=== PATIENT | female | born 1940 | race Caucasian/White ===

== ENCOUNTER 2018-07-20 07:53 | Observation (INO) ==
[2018-07-20] MEDS ORDERED: *HR* HYDROcodone/Acet 5/325 mg TABLET PO ONE (08:10)
[2018-07-20 08:22] LABS: Basophils % 0.3 %; Eosinophils # 0.1 K/mcL (0.0-0.6); Eosinophils % 0.8 %; Hematocrit 39.2 % (35.3-44.9); Hemoglobin 12.3 g/dL (11.5-15.4); Immature Granulocytes % 0.5 % (0-4); Lymphocytes # 1.2 K/mcL (0.6-4.6); Lymphocytes % 13.7 %; Mean Corpuscular HGB Conc 31.4 g/dL (31.6-35.5); Mean Corpuscular Hemoglobin 32.5 pg (28.0-33.3); Mean Corpuscular Volume 103.7 fL (83.0-100.0); Mean Platelet Volume 10.1 fL (9.4-12.4); Monocytes % 11.6 %; Neutrophils # 6.5 K/mcL (1.6-8.9); Platelet Count 252 K/mcL (140-400); Red Blood Count 3.78 M/mcL (3.82-4.97); Segmented Neutrophils % 73.1 %
[2018-07-20 08:40] LABS: Alanine Aminotransferase 21 Units/L (7-52); Albumin 3.5 g/dL (3.5-5.7); Albumin/Globulin Ratio 1.5 (1.1-2.2); Alkaline Phosphatase 184 Units/L (34-104); Aspartate Amino Transferase 23 Units/L (13-39); BUN/Creatinine Ratio 32 (6-26); Bilirubin,Total 0.7 mg/dL (0.3-1.0); Blood Urea Nitrogen 19 mg/dL (8-23); Calcium 9.8 mg/dL (8.6-10.3); Carbon Dioxide 29 mEq/L (23-29); Chloride 107 mEq/L (98-107); Creatine Kinase 102 Units/L (30-223); Globulin 2.3 g/dL (2.4-3.5); Glucose 98 mg/dL (70-105); Osmolality,Calculated 298 (280-300); Potassium 4.3 mEq/L (3.5-5.1); Sodium 143 mEq/L (136-145); Total Protein 5.8 g/dL (6.4-8.9); eGFR For Non-African Americans > 60 (> 60)
[2018-07-20 09:13] LABS: Thyroid Stimulating Hormone 1.197 mcIU/mL (0.340-5.600)
[2018-07-20] MEDS: 0.9 % Sodium Chloride 1,000 ML IVC SCH ×2 (09:17→14:00)
--- NOTE | 2018-07-20 09:27 | Emergency Department Note ---
Disposition Clinical Impression: Back pain, Weakness, Fall Disposition: Admitted As Inpatient Condition: Fair Referrals: NONE,PCP [Primary Care Provider] - Forms: ED Satisfaction Letter General Adult HPI - General Chief complaint: ED Altered Mental Status Stated complaint: AMS, Fall Time Seen by Provider: 07/20/18 07:58 Source: patient, EMS Limitations: no limitations, altered mental status Nursing Notes Reviewed: Yes Vital Signs Reviewed: Yes - History of Present Illness Pain Scale: 9 - Related Data Home Medications Medication Instructions Recorded Confirmed Metoprolol [Lopressor] 25 mg PO BID 06/13/18 06/13/18 Hydrocodone. 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 - Social History Smoking Status: Never smoker Smokeless Tobacco Status: No Alcohol use: Reports: none Drug use: Reports: none Physical Exam - General Limitations: no limitations, altered mental status General appearance: in no apparent distress Course Vital Signs Temperature 97.9 F 07/20/18 08:02 Pulse Rate 90 07/20/18 08:02 Respiratory Rate 16 07/20/18 08:02 Blood Pressure 132/68 07/20/18 08:02 O2 Sat by Pulse Oximetry 98 07/20/18 08:02 Temperature 97.9 F 07/20/18 08:02 Pulse Rate 90 07/20/18 08:02 Respiratory Rate 16 07/20/18 08:02 Blood Pressure 132/68 07/20/18 08:02 O2 Sat by Pulse Oximetry 98 07/20/18 08:02 Oxygen Delivery Oxygen Delivery Room Air Medical Decision Making - MDM Narrative Medical decision making narrative: Head CT 07/20/18 08:10 IMPRESSION: No acute intracranial abnormality. D/ / Gisela Franks MD / Gisela Franks MD Interpreting Provider: Gisela Franks MD Chest X-Ray 07/20/18 09:26 IMPRESSION: Hypoaeration with left upper lobe scarring or atelectasis. D/ / 07/20/2018 09:43:13 Sarkis Reynaga MD / earnold Interpreting Provider: Sarkis Reynaga MD 1030 hrs.: Patient feeling better after pain meds due to her inability to ambulate well living alone I think she needs social service evaluation which we do not have any ER today no due admission with social service consult upstairs. Hospitalist was paged case was discussed and they have accepted her. - Lab Data Result diagrams: 07/20/18 08:10 07/20/18 08:10 Lab Results 07/20/18 07/20/18 Range/Units 08:10 08:10 WBC 8.9 (4.3-11.1) K/mcL RBC 3.78 L (3.82-4.97) M/mcL Hgb 12.3 (11.5-15.4) g/dL Hct 39.2 (35.3-44.9) % MCV 103.7 H (83.0-100.0) fL MCH 32.5 (28.0-33.3) pg MCHC 31.4 L (31.6-35.5) g/dL RDW 14.0 (11.5-14.5) % Plt Count 252 (140-400) K/mcL MPV 10.1 (9.4-12.4) fL Immature Gran % 0.5 (0-4) % Seg Neutrophils % 73.1 % Lymphocytes % 13.7 % Monocytes % 11.6 % Eosinophils % 0.8 % Basophils % 0.3 % Neutrophils # 6.5 (1.6-8.9) K/mcL Lymphocytes # 1.2 (0.6-4.6) K/mcL Monocytes # 1.0 (0.0-1.3) K/mcL Eosinophils # 0.1 (0.0-0.6) K/mcL Basophils # 0.0 (0.0-0.2) K/mcL Sodium 143 (136-145) mEq/L Potassium 4.3 (3.5-5.1) mEq/L Chloride 107 (98-107) mEq/L Carbon Dioxide 29 (23-29) mEq/L BUN 19 (8-23) mg/dL Creatinine 0.60 (0.60-1.20) mg/dL Est GFR ( Amer) > 60 (> 60) Est GFR (Non-Af Amer) > 60 (> 60) BUN/Creatinine Ratio 32 H (6-26) Glucose 98 (70-105) mg/dL Calculated Osmolality 298 (280-300) Calcium 9.8 (8.6-10.3) mg/dL Total Bilirubin 0.7 (0.3-1.0) mg/dL AST 23 (13-39) Units/L ALT 21 (7-52) Units/L Alkaline Phosphatase 184 H (34-104) Units/L Creatine Kinase 102 (30-223) Units/L Serum Total Protein 5.8 L (6.4-8.9) g/dL Albumin 3.5 (3.5-5.7) g/dL Globulin 2.3 L (2.4-3.5) g/dL Albumin/Globulin Ratio 1.5 (1.1-2.2) TSH 1.197 (0.340-5.600) mcIU/mL Attestation Statement - Attestation Attestation: This documentation is done with the assistance of Dragon dictation. Despite efforts made to ensure accuracy, there may be inaccuracies in digital communications manager or spelling and typographical errors. I examined this patient and my medical decision-making was reviewed with the Resident Physician. I agree with the documented findings, disposition and treatment plan as described except to the extent set forth below. patient was seen and evaluated by Dr. Vega, I agree with his evaluation and management plan, I supervised the care the patient's stay. Called EMS was for being down on the ground uncertain duration. Uncertain of loss of consciousness. She says she has been too weak to walk. We will order labs, and CT and reassess. We will also speak with social media assistant. She is in agreement with this plan.
--- NOTE | 2018-07-20 09:32 | Emergency Department Note ---
Disposition Clinical Impression: Weakness Back pain Qualifiers: Back pain location: low back pain Chronicity: unspecified Back pain laterality: midline Sciatica presence: unspecified whether sciatica present Qualified Code(s): M54.5 - Low back pain Fall Qualifiers: Encounter type: initial encounter Qualified Code(s): W19.XXXA - Unspecified fall, initial encounter Disposition: Admitted As Inpatient Condition: Fair Referrals: NONE,PCP [Primary Care Provider] - Forms: ED Satisfaction Letter Time of Disposition: 09:49 Altered Mental Status HPI - General Chief Complaint: ED Altered Mental Status Stated Complaint: AMS, Fall Time Seen by Provider: 07/20/18 07:58 Source: patient, EMS Limitations: no limitations, altered mental status Nursing Notes Reviewed: Yes Vital Signs Reviewed: Yes - History of Present Illness HPI Narrative: 78-year-old female patients for evaluation for EMS concerns for altered mental status and fall. EMS states that the neighbors called as they found the patient on the ground. Patient states that she has not been able to walk due to her back pain. States she is out of her pain medicine. Patient denies any headache. Denies any LOC. Denies any chest pain or shortness of breath. Denies any complaints. Neighbors in EMS reported the patient was altered. Patient states that she has not had any of her pain medication. Denying any abdominal pain. No nausea or vomiting. No fevers. States she does have chronic back pain. - Related Data Home Medications Medication Instructions Recorded Confirmed Metoprolol [Lopressor] 25 mg PO BID 06/13/18 06/13/18 Hydrocodone. 06/18/18 Previous Rx's Medication Instructions Recorded methylPREDNISolone [Medrol] 4 mg PO DAILY #21 tablet 06/13/18 Allergies Allergy/AdvReac Type Severity Reaction Status Date / Time duloxetine [From Cymbalta] Allergy Dizziness Verified 06/18/18 10:12 iodine Allergy Anaphylaxis Verified 06/18/18 10:12 lidocaine Allergy Rash Verified 06/18/18 10:12 tape Allergy Rash Uncoded 06/13/18 13:53 All systems ED: reviewed and negative except as stated. 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 Absent: respiratory distress - Cardiovascular Cardiovascular exam: Present: regular rate - Abdominal Exam Abdominal exam: Present: soft, Non-Tender - Extremities Exam Extremities exam: Present: normal inspection. Absent: pedal edema - Back Exam Back exam: Present: normal inspection - Neurological Exam Neurological exam: Present: alert, oriented X3, CN II-XII intact - Expanded Neurological Exam Patient oriented to: Present: person, place, time Motor strength - LUE: 5/5 Motor strength - RUE: 5/5 Motor strength - LLE: 5/5 Motor strength - RLE: 5/5 Coma Scale Eye Opening: Spontaneous Coma Scale Motor Response: Obeys Commands Coma Scale Verbal Response: Oriented Coma Scale Total: 15 - Skin Skin exam: Present: warm, dry, intact, normal color Course Course Narrative: Patient seen and examined. Patient does appear alert and oriented. Patient denies any complaints besides her back pain. Patient's getting appropriate pain medication. Patient also get screening evaluation given history of being found down. Disposition anticipated for admission. - Reevaluation(s) Reevaluation #1: Patient seen and examined. Patient's resting comfortably. Time: 09:51 Vital Signs Temperature 97.9 F 07/20/18 08:02 Pulse Rate 90 07/20/18 08:02 Respiratory Rate 16 07/20/18 08:02 Blood Pressure 132/68 07/20/18 08:02 O2 Sat by Pulse Oximetry 98 07/20/18 08:02 Temperature 97.9 F 07/20/18 08:02 Pulse Rate 90 07/20/18 08:02 Respiratory Rate 16 07/20/18 08:02 Blood Pressure 132/68 07/20/18 08:02 O2 Sat by Pulse Oximetry 98 07/20/18 08:02 Oxygen Delivery Oxygen Delivery Room Air Altered Mental Status - MDM Narrative Medical decision making narrative: Patient seen and examined. Feel that the patient cannot take care of herself adequately at home. Patient does live by herself. Patient is requesting placement. Patient is unsafe to discharge home with self-care. Attempted to contact social welfare research worker social workers not available in the ER at this time. Patient was also found down and would recommend a period of observation. Patient's agreeable said plan of care. - Lab Data Lab results reviewed: Yes I reviewed the patient's lab results. Result diagrams: 07/20/18 08:10 07/20/18 08:10 Lab Results 07/20/18 07/20/18 Range/Units 08:10 08:10 WBC 8.9 (4.3-11.1) K/mcL RBC 3.78 L (3.82-4.97) M/mcL Hgb 12.3 (11.5-15.4) g/dL Hct 39.2 (35.3-44.9) % MCV 103.7 H (83.0-100.0) fL MCH 32.5 (28.0-33.3) pg MCHC 31.4 L (31.6-35.5) g/dL RDW 14.0 (11.5-14.5) % Plt Count 252 (140-400) K/mcL MPV 10.1 (9.4-12.4) fL Immature Gran % 0.5 (0-4) % Seg Neutrophils % 73.1 % Lymphocytes % 13.7 % Monocytes % 11.6 % Eosinophils % 0.8 % Basophils % 0.3 % Neutrophils # 6.5 (1.6-8.9) K/mcL Lymphocytes # 1.2 (0.6-4.6) K/mcL Monocytes # 1.0 (0.0-1.3) K/mcL Eosinophils # 0.1 (0.0-0.6) K/mcL Basophils # 0.0 (0.0-0.2) K/mcL Sodium 143 (136-145) mEq/L Potassium 4.3 (3.5-5.1) mEq/L Chloride 107 (98-107) mEq/L Carbon Dioxide 29 (23-29) mEq/L BUN 19 (8-23) mg/dL Creatinine 0.60 (0.60-1.20) mg/dL Est GFR ( Amer) > 60 (> 60) Est GFR (Non-Af Amer) > 60 (> 60) BUN/Creatinine Ratio 32 H (6-26) Glucose 98 (70-105) mg/dL Calculated Osmolality 298 (280-300) Calcium 9.8 (8.6-10.3) mg/dL Total Bilirubin 0.7 (0.3-1.0) mg/dL AST 23 (13-39) Units/L ALT 21 (7-52) Units/L Alkaline Phosphatase 184 H (34-104) Units/L Creatine Kinase 102 (30-223) Units/L Serum Total Protein 5.8 L (6.4-8.9) g/dL Albumin 3.5 (3.5-5.7) g/dL Globulin 2.3 L (2.4-3.5) g/dL Albumin/Globulin Ratio 1.5 (1.1-2.2) TSH 1.197 (0.340-5.600) mcIU/mL - Radiology Data Radiology results reviewed: Yes I reviewed the patient's radiology results. - EKG Data EKG attestation: Yes I reviewed and interpreted this EKG. EKG shows normal: sinus rhythm Rate: normal Rhythm: NSR [place]/QRS: normal Interpretation: no acute changes, nonspecific ST-T wave changes TPA Checklist - LKW: 3-4.5 hrs Add. Warnings/Precautions Patient/family understanding: The patient/family members have been counseled and understood the risk, benefit, and alternatives of treatment. Hattie - Hattie Situation: Demographics Background: Presenting Complaint Assessment: Vital Signs, Course and respsone to treatment, Patient/Family Expectation Recommendation: Barrier(s) to disposition, Recommendation based on pending studies, treatments, or consults Hattie Report Given to: Hospitalist Hattie Scott Time: 09:49
--- NOTE | 2018-07-20 10:52 | Internal Med History&Physical ---
<Renny Gray - Last Filed: 07/20/18 16:45> Date of Encounter: 07/20/18 Time of Encounter: 10:45 Internal Medicine - H&P: HPI Chief complaint: Difficulty walking Admitted From: Emergency Dept History of present illness: Ms. Vieira is a 78 year old female with a past medical history hypertension, dementia, benzo/opioid dependence, and chronic back pain with right sided sciatica pain who was found by her neighbor sitting in her recliner complaining of inability to ambulate due to pain. Patient lives at home alone and her neigh bor called EMS to transfer her to the hospital. Patient reports feeling too weak to walk and has increased back pain since running out of her Hydrocodone 5 mg PO TID. Of note, patient was transferred to [facility] 06/30/18 after MRI findings revealed acute cauda equina compression. Patient elected to do medical therapy at that time. Patient had an episode of urinary incontinence x1 this morning but denies saddle anesthesia, bowel incontinence/ or further urinary incontinence. Patient denies any associated headaches, loss of consciousness, blurry vision, falls, extremity trauma, or recent illnesses. In the ED, CT brain revealed no acute intracranial abnormality. Past Med Surg Social Fam HX - Past Medical History Medical history: dementia, hypertension Additional medical history: STOMACH ULCERS Psychiatric history: anxiety - Past Surgical History Surgical History: non-contributory Additional surgical history: Elbow replacement, sinus surgery, sebaceous cyst from her from scalp - Social History Smoking Status: Never smoker Smokeless Tobacco Status: No Alcohol use: none Drug use: none - Family History Mother Living Status: Hx Family Cancer: Yes (Unknown type) Father Living Status: Hx Family Cancer: Yes (Unknown type) Internal Medicine - H&P: Meds HYDROcodone/Acet 7.5/325 mg [Wayne 7.5-325 mg] 1 tab PO TID PRN 06/18/18 [History] Aspirin [Adult Aspirin Regimen] 81 mg PO DAILY 07/20/18 [History] Meclizine [Antivert] 12.5 mg PO BID PRN 07/20/18 [History] Metoprolol Tartrate [Lopressor] 50 mg PO DAILY 07/20/18 [History] Multivitamin [One Daily Multivitamin] 1 tab PO DAILY 07/20/18 [History] Omeprazole [PriLOSEC] 20 mg PO DAILY PRN 07/20/18 [History] diazePAM [Valium] 5 mg PO BID PRN 07/20/18 [History] Allergy/AdvReac Type Severity Reaction Status Date / Time duloxetine [From Cymbalta] Allergy See Verified 07/20/18 14:04 Comments iodine Allergy Anaphylaxis Verified 07/20/18 14:04 lidocaine Allergy Itching Verified 07/20/18 14:04 Sulfa (Sulfonamide Allergy See Verified 07/20/18 14:10 Antibiotics) Comments tape Allergy Rash Uncoded 06/13/18 13:53 All Systems PM: A 10-system review of systems was performed and is negative for pertinent findings except as documented above in the HPI. - Constitutional Constitutional: fatigue, weakness, no anorexia, no chills, no fever(s) - EENT Eyes: no blurry vision, no diplopia Nose, mouth and throat: no sinus pain, no sore throat - Cardiovascular Cardiovascular ROS IM: no chest pain, no dyspnea - Respiratory Respiratory: no cough, no dyspnea - Gastrointestinal Gastrointestinal: no abdominal pain, no diarrhea, no nausea, no vomiting - Genitourinary Genitourinary: nocturia, urinary frequency, urinary incontinence (x1), urinary urgency, vaginal odor, no dysuria - Musculoskeletal Musculoskeletal ROS IM: back pain (right sided sciatica), tingling - Neurological Neurological ROS: numbness, paresthesias, weakness, no confusion, no dizziness, no focal weakness, no headache(s) - Psychiatric Psychiatric: no anxiety, no depression - Endocrine Endocrine IM: fatigue, no polydipsia, no polyphagia, no polyuria - Constitutional Vitals: Temp Pulse Resp BP Pulse Ox 97.9 F 90 16 132/68 98 07/20/18 08:02 07/20/18 08:02 07/20/18 08:02 07/20/18 08:02 07/20/18 08:02 General appearance: Present: cooperative, A&O X 3, pleasant, no acute distress Exam: urine odor - Head Head exam: Present: atraumatic, normocephalic - Eye Eye exam: Present: EOMI, conjuntiva pink, sclera anicteric - ENT ENT exam: Present: mucous membranes dry, normal oropharynx - Neck Neck exam general surgery: Present: supple, trachea midline. Absent: lymphadenopathy - Respiratory Respiratory exam: Present: CTAB. Absent: accessory muscle use, rales, rhonchi, wheezes - Cardiovascular Cardiovascular exam: Present: RRR, +S1, +S2. Absent: diastolic murmur, gallop, rubs, systolic murmur - GI/Abdominal GI/Abdominal exam: Present: normal bowel sounds, soft, no peritoneal signs. Absent: distended, tenderness - Extremities Exam Extremities exam: Present: warm, radial pulses palpable and symmetrical. Absent: calf tenderness, cyanotic, pedal edema - Back Exam Back exam: Present: CVA tenderness (R), normal inspection, tenderness - Neurological Exam Neurological exam: Present: CN II-XII intact, oriented X3, no focal deficits. Absent: pronater drift, facial droop, speech deficit Additional comments: No saddle paresthesia present while patient's undergarments were changed - Psychiatric Psychiatric exam: Present: normal affect, normal mood - Expanded Psychiatric Exam Focused psych exam: Present: perseverating - Skin Skin exam: Present: dry, erythema (Left knee greater than right knee), intact Internal Med - H&P Results - Labs CBC & Chem 7: 07/20/18 08:10 07/20/18 08:10 Labs: Short CBC 07/20/18 Range/Units 08:10 WBC 8.9 (4.3-11.1) K/mcL Hgb 12.3 (11.5-15.4) g/dL Hct 39.2 (35.3-44.9) % Plt Count 252 (140-400) K/mcL Neutrophils # 6.5 (1.6-8.9) K/mcL BMP 07/20/18 08:10 Sodium 143 Potassium 4.3 Chloride 107 Carbon Dioxide 29 BUN 19 Creatinine 0.60 Glucose 98 Calcium 9.8 Liver Function 07/20/18 Range/Units 08:10 Total Bilirubin 0.7 (0.3-1.0) mg/dL AST 23 (13-39) Units/L ALT 21 (7-52) Units/L Alkaline Phosphatase 184 H (34-104) Units/L Albumin 3.5 (3.5-5.7) g/dL - Pulse Oximetry Interpretation Digit-Finger O2 Sat by Pulse Oximetry: 98 (On ambient air) - EKG Data EKG shows normal: sinus rhythm (Heart rate 88, QTC 467, abnormal R wave progression, no signs of ischemia) - Impressions ITS Impressions Head CT 07/20/18 08:10 IMPRESSION: No acute intracranial abnormality. D/ / Gisela Franks MD / Gisela Franks MD Interpreting Provider: Gisela Franks MD Chest X-Ray 07/20/18 09:26 IMPRESSION: Hypoaeration with left upper lobe scarring or atelectasis. D/ / 07/20/2018 09:43:13 Sarkis Reynaga MD / [facility] Interpreting Provider: Sarkis Reynaga MD - Assessment and Plan (1) UTI (urinary tract infection) Current Visit: Yes Status: Acute Assessment and plan: Patient with urinary frequency/urgency, urinary incontinence, strong urine odor UA revealed elevated WBCs, leukocyte estrase, urine culture pending Start Rocephin 1mg IV x3 days Qualifiers: Urinary tract infection type: acute cystitis Hematuria presence: without hematuria Qualified Code(s): N30.00 - Acute cystitis without hematuria (2) Weakness Current Visit: Yes Status: Acute Assessment and plan: PT/OT consulted (3) Right-sided low back pain with sciatica Current Visit: Yes Status: Acute Assessment and plan: CT L-spine 07/10/18 1. T11 compression fracture with moderate, approximately 30%, loss of vertebral body height, which has progressed since the prior examination, suggesting acute on chronic fracture. There is new, mild T11 prevertebral soft tissue stranding. 2. L5 compression fracture with moderate, approximately 40%, loss of vertebral body height has not significantly changed in configuration. 3. Osteopenia. Resume opiate therapy. Follow up with PCP. Qualifiers: Chronicity: chronic Sciatica laterality: sciatica of right side Qualified Code(s): M54.41 - Lumbago with sciatica, right side; G89.29 - Other chronic pain (4) Opioid dependence Current Visit: Yes Status: Chronic Assessment and plan: OARRS report reviewed, patient last received a prescription for hydrocodone 5 mg TID (90 tablets) last filled on 06/22/18 Qualifiers: Substance use status: uncomplicated Qualified Code(s): F11.20 - Opioid dependence, uncomplicated (5) History of benzodiazepine use Current Visit: Yes Status: Chronic Assessment and plan: OARRS report reviewed, patient last received a prescription for Valium 5 mg in May, with multiple previous refills. UDS pending. (6) Hypertension Current Visit: Yes Status: Chronic Assessment and plan: Diet controlled. Continue monitoring Qualifiers: Hypertension type: essential hypertension Qualified Code(s): I10 - Essential (primary) hypertension (7) Dementia Current Visit: No Status: Suspected Qualifiers: Dementia type: unspecified type Dementia behavioral disturbance: without behavioral disturbance Qualified Code(s): F03.90 - Unspecified dementia without behavioral disturbance (8) Goals of care, counseling/discussion Current Visit: Yes Status: Acute Assessment and plan: Patient wishes to be a DNR-CCA-DNI. Paperwork completed at bedside. She plans to meet with an igniter assembler to complete her living will and designate her friend as her POA. 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 Acute traumatic closed L5 vertebral body fracture with about 40% vertebral body height loss centrally. No intraspinal hematoma. 2. Severe multifactorial spinal canal stenosis at L3-L4 and L4-L5 with mass effect on the cauda equina nerve roots. 3. Severe right L3-L4, L4-L5, and L5-S1 neural foraminal stenosis with compression of the exiting right L3, right L4, and right L5 nerve roots, respectively. 4. Moderate left L3-L4 and L4-L5 neural foraminal stenosis. Patient was transferred to [place] for further evaluation. Patient elected to do medical therapy at that time. Records requested. - Time Spent With Patient Total time spent is greater than 50% in coordination of care (as documented) at patient's floor/unit and/or counseling patient: <Libra Hills - Last Filed: 07/20/18 18:59> Date of Encounter: 07/20/18 Internal Medicine - H&P: HPI History of present illness: Ms. Vieira is a 78 year old female All Systems PM: A 10-system review of systems was performed and is negative for pertinent findings except as documented above in the HPI. - Constitutional Vitals: Temp Pulse Resp BP Pulse Ox 98.6 F 99 19 123/71 100 07/20/18 16:28 07/20/18 16:28 07/20/18 16:28 07/20/18 16:28 07/20/18 16:28 Internal Med - H&P Results - Labs CBC & Chem 7: 07/20/18 08:10 07/20/18 08:10 Labs: Short CBC 07/20/18 Range/Units 08:10 WBC 8.9 (4.3-11.1) K/mcL Hgb 12.3 (11.5-15.4) g/dL Hct 39.2 (35.3-44.9) % Plt Count 252 (140-400) K/mcL Neutrophils # 6.5 (1.6-8.9) K/mcL BMP 07/20/18 08:10 Sodium 143 Potassium 4.3 Chloride 107 Carbon Dioxide 29 BUN 19 Creatinine 0.60 Glucose 98 Calcium 9.8 Cardiac Enzymes 07/20/18 Range/Units 08:10 Troponin I < 0.03 (< 0.04) ng/mL Liver Function 07/20/18 Range/Units 08:10 Total Bilirubin 0.7 (0.3-1.0) mg/dL AST 23 (13-39) Units/L ALT 21 (7-52) Units/L Alkaline Phosphatase 184 H (34-104) Units/L Albumin 3.5 (3.5-5.7) g/dL Urine 07/20/18 Range/Units Unknown Urine Color Dark Yellow (Yellow) Urine Clarity Clear (Clear) Urine pH 5.5 (5.0-8.0) pH Units Ur Specific Rufus > 1.030 H (1.010-1.025) Urine Protein 30 H (Neg-Trace) mg/dL Urine Glucose (UA) Normal (Normal) mg/dL - Impressions ITS Impressions Head CT 07/20/18 08:10 IMPRESSION: No acute intracranial abnormality. D/ / Gisela Franks MD / Gisela Franks MD Interpreting Provider: Gisela Franks MD Chest X-Ray 07/20/18 09:26 IMPRESSION: Hypoaeration with left upper lobe scarring or atelectasis. D/ / 07/20/2018 09:43:13 [facility] Reynaga MD [facility] Interpreting Provider: Sarkis Reynaga MD - Assessment and Plan (1) Weakness Current Visit: Yes Status: Acute (2) Right-sided low back pain with sciatica Current Visit: Yes Status: Acute Qualifiers: Chronicity: chronic Sciatica laterality: sciatica of right side Qualified Code(s): M54.41 - Lumbago with sciatica, right side; G89.29 - Other chronic pain (3) Opioid dependence Current Visit: Yes Status: Chronic Qualifiers: Substance use status: uncomplicated Qualified Code(s): F11.20 - Opioid dependence, uncomplicated (4) History of benzodiazepine use Current Visit: Yes Status: Chronic (5) Hypertension Current Visit: Yes Status: Chronic Qualifiers: Hypertension type: essential hypertension Qualified Code(s): I10 - Essential (primary) hypertension (6) Dementia Current Visit: No Status: Suspected Qualifiers: Dementia type: unspecified type Dementia behavioral disturbance: without behavioral disturbance Qualified Code(s): F03.90 - Unspecified dementia without behavioral disturbance (7) Goals of care, counseling/discussion Current Visit: Yes Status: Acute (8) DVT prophylaxis Current Visit: Yes Status: Acute (9) UTI (urinary tract infection) Current Visit: Yes Status: Acute Qualifiers: Urinary tract infection type: acute cystitis Hematuria presence: without hematuria Qualified Code(s): N30.00 - Acute cystitis without hematuria (10) Cauda equina compression Current Visit: No Status: Chronic - Time Spent With Patient Total time spent is greater than 50% in coordination of care (as documented) at patient's floor/unit and/or counseling patient: - Attending Attestation I have seen and independently assessed this patient and I agree with plan as documented
[2018-07-20 11:17] LABS: Bilirubin,Urine Small (Negative); Blood,Urine Negative (Negative); Clarity,Urine Clear (Clear); Color,Urine Dark Yellow (Yellow); Glucose,Urine (UA) Normal (Normal); Ketones,Urine Negative (Negative); Leukocyte Esterase,Urine Small (Negative); Nitrite,Urine Negative (Negative); PH,Urine 5.5 pH Units (5.0-8.0); Protein,Urine 30 mg/dL (Neg-Trace); Specific Gravity,Urine > 1.030 (1.010-1.025); Urobilinogen,Urine Normal (Normal)
[2018-07-20] MEDS ORDERED: Acetaminophen 325 MG TABLET PO PRN (11:18)
[2018-07-20] MEDS ORDERED: Ondansetron 4 MG/2 ML VIAL IVP PRN (11:18)
[2018-07-20] MEDS ORDERED: Naloxone 0.4 MG/ML INJ IVP PRN (11:18)
[2018-07-20 11:20] LABS: Bacteria,Urine None Seen per hpf (None-Few); Squamous Epithelial Cell,Urine Many per lpf (None-Few); WBC,Urine 30-50 per hpf (0-3)
[2018-07-20 11:52] LABS: Hyaline Casts,Urine Few per lpf (None-Few)
[2018-07-20 11:53] LABS: Calcium Oxalate Crystals,Urine Present
[2018-07-20 11:58] LABS: Phosphorous 3.6 mg/dL (2.7-4.5)
[2018-07-20 12:17] LABS: Troponin I < 0.03 ng/mL (< 0.04)
[2018-07-20] MEDS ORDERED: diazePAM 5 MG TABLET PO PRN (13:32)
[2018-07-20] MEDS: *HR* Heparin 5,000 UNIT/ML VIAL SQ SCH ×2 (14:00→21:42)
[2018-07-20] MEDS ORDERED: cefTRIAXone 1,000 MG in Water for inj. (sterile) 20 ML 10 ML IVP SCH (15:00)
[2018-07-20] MEDS: *HR* HYDROcodone/Acet 5/325 mg TABLET PO PRN (17:26)
[2018-07-21] MEDS: *HR* HYDROcodone/Acet 5/325 mg TABLET PO PRN ×2 (01:48→09:16)
--- NOTE | 2018-07-21 03:54 | Electrocardiograph Report ---
[facility] Test Date: 2018-07-20 Pat Name: Sanjuanita Guevaratcbert Department: [id number] Room: [facility] Gender: F Labels Molder: : 1940 Requested By: Leland Henriquez Order Number: [id number] Reading MD: Rajiv Beaver Measurements Intervals Alpha Rate: 88 P: 47 MT: 195 QRS: 15 QRSD: 92 T: 58 QT: 386 QTc: 467 Interpretive Statements Sinus rhythm Electronically Signed On 07-21-2018 3:52:27 EDT by Rajiv Beaver
--- NOTE | 2018-07-21 05:24 | Event Note ---
Date of Encounter: 07/20/18 Time of Encounter: 22:44 Alerted by pts. nurse VIVIANA Donovan that the pt. was rating her pain 9.5/10. Vital signs at this time temperature 98.1, HR 94, RR 19, BP 134/52, and SPO2 97% on 2 L. Patient had received [place] 5/325 at 17:26 and was reporting continued pain. Nurse reported that the pt. stated if we could not control her back pain then she wished to be transferred to [facility]. Reviewed pts. chart and notes with which showed admission in late May at [facility] for similar symptoms, however patient had been transferred to [facility] on 06/30/18 d/t abnormal CT of the lumbar spine showed acute traumatic burst compression fracture of L5 with approximately 40% loss of vertebral body height. Along with pre-existing L4-5 and L5-S1 disc degenerative changes, there is a severe canal narrowing at L4-5 and moderate canal narrowing L5-S1. No significant retropulsion of fracture fragments. The fracture also extends in the posterior elements involving the right pedicle. MRI is recommended to exclude epidural hematoma. Right sacral body sacral insufficiency fracture that is vertically oriented and Rex also right SI joint. Severe multilevel degenerative changes of the lumbar spine with multilevel moderate to severe canal and foraminal narrowing. Moderate multilevel disc degenerative changes of thoracic spine. Current admission note suggested acute cauda equina compression which raised great concern. Pt. was admitted today after neighbor found her sitting in her recliner complaining of inability to ambulate due to pain. Patient lives alone at home and her neighbor called EMS to transfer her to hospital. Urinary incontinence 1 today but no bowel incontinence or further urinary incontinence. Went to see the pt. who was resting in bed. Pt. stated that her back pain was 10/10 and she wished to be transferred to [facility]. Pt. had originally turned down surgical int ervention when she was transferred to [facility] and opted for medical therapy. Pt. now wants surgery. I informed the pt. that she, in fact, was sent to [facility] on 06/30 which the pt. denied. She maintained that she went to [facility]. I called [facility] transfer center to determine if pt. had been seen there last month. I spoke w/Dr. Dozier who stated that the pt. was last seen in [address] Dozier stated that they would accept the pt. for transfer, either OP or IP, but they would have to start at [facility] in diagnosing and treating the pt. I told them I would call them back. Called [facility] and confirmed that the pt. was seen on 06/30/18 there and MRI had been done. [facility] began transfer orders. Went to see the pt. and let her know that I had confirmed she was at [facility] on 06/30 and they were willing to transfer her there. Pt. was adamant that she was not going to [facility] and that she only wished to go to [facility]. I informed her that [facility] did not have any current imaging or information and they would be starting the process over. I also stated that [facility] was willing to accept her as OP or IP. Pt. stated she was unable to do OP as she had no way there. Pt. stated she would go there or go home. Called [facility] back and spoke to Bishop in the transfer center who stated they would try to find a bed for the pt. I called [facility] transfer [facility] to inform them that the pt. refused to be transferred there and to cancel the transfer orders. This process took place between 22:44 and 03:30. Alerted by pts. nurse Donovan RN at 04:46 that the [facility] had secured a bed in the main campus in [address], Bed 35. Nurse instructed to call report to [facility] and transfer the pt.
[2018-07-21] MEDS: *HR* Heparin 5,000 UNIT/ML VIAL SQ SCH (06:26)
[2018-07-21 07:52] VITALS: BP 133/67
[2018-07-21 09:30] LABS: Basophils % 0.2 %; Eosinophils # 0.1 K/mcL (0.0-0.6); Eosinophils % 1.6 %; Hematocrit 37.4 % (35.3-44.9); Hemoglobin 11.7 g/dL (11.5-15.4); Immature Granulocytes % 0.5 % (0-4); Lymphocytes % 18.8 %; Mean Corpuscular HGB Conc 31.3 g/dL (31.6-35.5); Mean Corpuscular Hemoglobin 32.1 pg (28.0-33.3); Mean Corpuscular Volume 102.5 fL (83.0-100.0); Mean Platelet Volume 10.3 fL (9.4-12.4); Monocytes # 0.5 K/mcL (0.0-1.3); Neutrophils # 3.9 K/mcL (1.6-8.9); Platelet Count 235 K/mcL (140-400); Red Blood Count 3.65 M/mcL (3.82-4.97); Red Cell Distribution Width 13.9 % (11.5-14.5); Segmented Neutrophils % 69.9 %
[2018-07-21 09:46] LABS: BUN/Creatinine Ratio 27 (6-26); Blood Urea Nitrogen 12 mg/dL (8-23); Calcium 8.9 mg/dL (8.6-10.3); Carbon Dioxide 29 mEq/L (23-29); Chloride 109 mEq/L (98-107); Glucose 114 mg/dL (70-105); Osmolality,Calculated 295 (280-300); Potassium 3.7 mEq/L (3.5-5.1); Sodium 142 mEq/L (136-145); eGFR For Non-African Americans > 60 (> 60)
== END 2018-07-21 09:30 | disposition critical access hospital (66) ==
LOC: EMEROOARM 07:53 → 2SOUTHHOLD 07:53 → SUATTDRO 10:46 → 2SOUTHHOLD 11:16
PROVIDERS: ADMIT Student in an Organized Health Care Education/Training Program; ATTEND Internal Medicine